=== PATIENT | male | born 1975 | race Hispanic/Latino ===

== ENCOUNTER 2020-02-01 11:05 | Emergency (ER) | payer SELFPAY ==
[~2020-02-01] VITALS: Ht 182.9 cm; Wt 99.8 kg
[2020-02-01] MEDS ORDERED: KETOROLAC TROMETHAMINE 30 MG/ML VIAL IV STA (11:26)
[2020-02-01] MEDS ORDERED: SODIUM CHLORIDE 0.9% 1000ML 1,000 ML IV STA (11:26)
[2020-02-01] MEDS ORDERED: ONDANSETRON HCL INJ 2MG/ML 2ML 2 MG/ML VIAL IV STA (11:26)
[2020-02-01] MEDS ORDERED: ASPIRIN 81 MG CHEW TAB PO ONE (11:30)
--- NOTE | 2020-02-01 11:33 | Emergency Department Note ---
History of Present Illnes History of Present Illness Chief Complaint: Chest Pain History of Present Illness This is a 45 year old male . presented to ed c/o r side lab pain radiating to back c/o nausea no diarrhea vomiting - c/o pain w/ movement Historian: Patient Arrival Mode: Car Onset (how long ago): day(s) (3) Radiation: Reports back Severity: moderate Onset quality: gradual Duration (how long): day(s) (3) Timing of current episode: constant Context: Denies recent illness, Denies recent surgery Relieving factors: none Exacerbating factors: none Associated symptoms: Reports denies other symptoms Treatments prior to arrival: none Past Medical/Family History Physician Review I have reviewed the patient's past medical and family history. Any updates have been documented here. Past Medical History Recent Fever: No Clinical Suspicion of Infectio: No New/Unexplained Change in Ment: No Past Medical History: None Past Surgical History: None Social History Smoking Cessation: Never Smoker Alcohol Use: None Any Illegal Drug Use: No TB Exposure/Symptoms: No Physically hurt or threatened: No Family History Family history of heart diseas: No Other Any Pre-Existing Lines (PICC,: No Review of Systems Review of Systems Constitutional: Reports no symptoms EENTM: Reports no symptoms Cardiovascular: Reports no symptoms Respiratory: Reports no symptoms Gastrointestinal: Reports as per HPI, Reports abdominal pain Genitourinary: Reports no symptoms Musculoskeletal: Reports no symptoms Integumentary: Reports no symptoms Neurological: Reports no symptoms Psychological: Reports no symptoms Endocrine: Reports no symptoms Hematological/Lymphatic: Reports no symptoms Physical Exam Related Data Allergies: Coded Allergies: No Known Allergies (Unverified , 02/01/20) Triage Vital Signs Vital Signs Date Time Temp Pulse Resp B/P (MAP) Pulse Ox O2 Delivery O2 Flow Rate FiO2 02/01/20 11:23 97.8 65 18 130/76 100 Room Air Vital signs reviewed: Yes Physical Exam CONSTITUTIONAL Constitutional: Present well-developed, Present well-nourished HENT HENT: Present normocephalic, Present atraumatic, Present oropharynx clear/moist, Present nose normal HENT L/R: Present left ext ear normal, Present right ext ear normal EYES Eyes: Reports PERRL, Reports conjunctivae normal NECK Neck: Present ROM normal PULMONARY Pulmonary: Present effort normal CARDIOVASCULAR Cardiovascular: Present regular rhythm GASTROINTESTINAL Abdominal: Present soft, Present bowel sounds normal; Absent nontender (ttp rlq ruq ) GENITOURINARY Genitourinary: Present other (denies testical pain ) SKIN Skin: Present warm MUSCULOSKELETAL Musculoskeletal: Present ROM normal NEUROLOGICAL Neurological: Present alert, Present oriented x 3 PSYCHOLOGICAL Psychological: Present mood/affect normal, Present judgement normal Results Laboratory Laboratory Laboratory Tests Test 02/01/20 12:00 02/01/20 11:40 Urine Color Yellow (YELLOW) Urine Clarity Clear (CLEAR) Urine pH 6 (5 - 7) Urine Specific [place] >=1.030 (1.010-1.025) Urine Protein Negative (NEGATIVE) Urine Glucose (UA) Negative (NEGATIVE) Urine Ketones Negative (NEGATIVE) Urine Blood Negative (NEGATIVE) Urine Nitrite Negative (NEGATIVE) Urine Bilirubin Negative (NEGATIVE) Urine Urobilinogen 0.2 mg/dL (0.2 - 1) Urine Leukocyte Esterase Negative (NEGATIVE) Urine RBC 0-5 /HPF (0-5) Urine WBC 0-5 /HPF (0-5) Urine Epithelial Cells None /LPF (NONE) Urine Bacteria Rare /HPF (NONE) White Blood Count 8.58 x10e3/uL (4.8-10.8) Red Blood Count 6.17 x10e6/uL (4.3-5.7) Hemoglobin 17.2 g/dL (14.0-18.0) Hematocrit 53.5 % (38.2-49.6) Mean Corpuscular Volume 86.7 fL (81-99) Mean Corpuscular Hemoglobin 27.9 pg (28-32) Mean Corpuscular Hemoglobin Concent 32.1 g/dL (31-35) Red Cell Distribution Width 14.6 % (11.7-14.4) Platelet Count 377 x10e3/uL (140-360) Neutrophils (%) (Auto) 62.4 % (38.7-80.0) Lymphocytes (%) (Auto) 25.4 % (18.0-39.1) Monocytes (%) (Auto) 9.6 % (4.4-11.3) Eosinophils (%) (Auto) 1.5 % (0.0-6.0) Basophils (%) (Auto) 0.6 % (0.0-1.0) Neutrophils # (Auto) 5.4 (2.1-6.9) Lymphocytes # (Auto) 2.2 (1.0-3.2) Monocytes # (Auto) 0.8 (0.2-0.8) Eosinophils # (Auto) 0.1 (0.0-0.4) Basophils # (Auto) 0.1 (0.0-0.1) Absolute Immature Granulocyte (auto 0.04 x10e3/uL (0-0.1) Sodium Level 141 mmol/L (136-145) Potassium Level 3.7 mmol/L (3.5-5.1) Chloride Level 98 mmol/L (98-107) Carbon Dioxide Level 32 mmol/L (22-29) Anion Gap 14.7 mmol/L (8-16) Blood Urea Nitrogen 14 mg/dL (7-26) Creatinine 1.66 mg/dL (0.72-1.25) Estimat Glomerular Filtration Rate 45 ML/MIN (60-) BUN/Creatinine Ratio 8 (6-25) Glucose Level 82 mg/dL (74-118) Calcium Level 9.6 mg/dL (8.4-10.2) Total Bilirubin 0.3 mg/dL (0.2-1.2) Aspartate Amino Transf (AST/SGOT) 16 IU/L (5-34) Alanine Aminotransferase (ALT/SGPT) 15 IU/L (0-55) Alkaline Phosphatase 87 IU/L (40-150) Creatine Kinase 224 IU/L (30-200) Creatine Kinase MB 1.10 ng/mL (0-5.0) Troponin I < 0.001 ng/mL (0-0.300) Total Protein 7.6 g/dL (6.5-8.1) Albumin 4.2 g/dL (3.5-5.0) Globulin 3.4 g/dL (2.3-3.5) Albumin/Globulin Ratio 1.2 (0.8-2.0) Amylase Level 68 U/L (25-125) Lipase 58 U/L (8-78) Lab results reviewed: Yes Imaging Imaging results reviewed: Yes Impressions Patient Name: RENETTA MATTSON III MR #: [id number] : 1975 Age/Sex: 45/M Req #: [id number] Adm Physician: Ordered by: TAWANDA ARECHIGA MD Report #: [id number] Location: ER Room/Bed: Procedure: [id number] US/US GALLBLADDER Exam Date: 02/01/20 Exam Time: 1317 REPORT STATUS: Signed HISTORY: ^ABD PAIN ^20200201 ^1317 ^Y COMPARISON: None. TECHNIQUE: Limited ultrasound examination of the abdomen was performed with attention to the right upper quadrant and with spectral and color Doppler. FINDINGS: Liver: The liver is normal in size with increased echogenicity. No focal lesions. Gallbladder: No stones. No sludge, pericholecystic fluid or wall thickening. Common bile duct: 0.2 cm in maximum diameter. Sonographic Grider's sign: Negative. Main portal vein: 0.9 cm. Pancreas: Obscured by bowel gas. Right kidney: The right kidney is normal in size. No hydronephrosis. No sonographically evident solid mass lesion. Anechoic 4.6 x 3.7 x 4.8 cm cyst. No ascites nor pleural effusion. IMPRESSION: 1. Echogenic liver, may be seen in steatosis/inflammation. Correlate with laboratory values. 2. Otherwise, unremarkable limited right upper quadrant abdominal exam. Signed by: Jhonatan Stokes MD on 02/01/2020 1:41 PM Dictated By: JHONATAN STOKES DO 1341 Transcribed By: KETAN on 02/01/20 [address] [place] [id number] Patient Name: RENETTA MATTSON III MR #: [id number] : 1975 Age/Sex: 45/M Req #: [id number] Adm Physician: Ordered by: TAWANDA ARECHIGA MD Report #: [id number] Location: ER Room/Bed: Procedure: [id number] CT/CT ABDOMEN/PELVIS W Exam Date: 02/01/20 Exam Time: 1310 REPORT STATUS: Signed EXAM: CT of the abdomen and pelvis with intravenous contrast HISTORY: ^r side abd pain ^20200201 ^1310 COMPARISON: None TECHNIQUE: Abdomen and pelvis were scanned utilizing a multidetector helical scanner. Coronal and sagittal reformations were obtained. Scan was performed during the portal venous phase. DOSE REDUCTION: The examination was performed according to the departmental dose-optimization program, which includes automated exposure control, adjustment of the mA and/or kV according to patient size and/or use of iterative reconstruction technique. FINDINGS: LINES and TUBES: None. LOWER THORAX: Lingular 0.4 cm groundglass nodule. HEPATOBILIARY: Low hepatic attenuation. Hepatic dome subcentimeter hypodensity is too small to characterize. No biliary ductal dilation. GALLBLADDER: No radio-opaque stones or sludge. No wall thickening. SPLEEN: No splenomegaly. PANCREAS: No focal masses or ductal dilatation. ADRENALS: No adrenal nodules. KIDNEYS/URETERS: Kidneys enhance symmetrically. No hydronephrosis. Right renal 4.7 cm simple cyst measures 7 Hounsfield units. No solid mass lesions. No stones. GI TRACT: Slightly thickened jejunal wall. No abnormal distention, or evidence of bowel obstruction. Appendix is normal. PELVIC ORGANS/BLADDER: Unremarkable. LYMPH NODES: No lymphadenopathy. VESSELS: Unremarkable. PERITONEUM / RETROPERITONEUM: No free air or fluid. BONES: Scattered degenerative changes. SOFT TISSUES: Unremarkable. IMPRESSION: 1. No findings to explain this patient's right-sided abdominal pain. 2. Findings suggestive of left-sided small bowel enteritis. 3. Low hepatic attenuation, may be seen in steatosis/inflammation. Correlate with laboratory values. Signed by: Jhonatan Stokes MD on 02/01/2020 1:56 PM Dictated By: JHONATAN STOKES DO 1356 Transcribed By: KETAN on 02/01/201355 COPY TO: TAWANDA ARECHIGA MD~ COPY TO: TAWANDA ARECHIGA MD~ Procedures 12 Lead ECG Interpretation ECG Interpretation : ECG: ECG 1 Date: Feb 01, 2020 Time: 11:28 Prior ECG tracings: reviewed Rhythm: sinus rhythm Rate: normal BPM: 61 QRS axis: normal ST segments normal: Yes Pacin% capture Clinical Impression: normal ECG Assessment & Plan Medical Decision Making MDM This is a 45 year old male . presented to ed c/o r side lab pain radiating to back c/o nausea no diarrhea vomiting - c/o pain w/ movement- denies dysuria - denies pain radiating to testicles - no cva tenderness note don exam - non impressive belly exam - plan lab us ct pain med r/o stone/tucker/divertic/ sbo Reassessment Reassessment discussed lab us ct results plan of care and f/u instructions appy speech given Assessment & Plan Final Impression: (1) Abdominal pain Last Vital Signs Date Time Temp Pulse Resp B/P (MAP) Pulse Ox O2 Delivery O2 Flow Rate FiO2 02/01/20 11:23 97.8 65 18 130/76 100 Room Air TAWANDA ARECHIGA MD Feb 01, 2020 11:33
[2020-02-01] MEDS ORDERED: CEFTRIAXONE SOD 1 GM/NS 50 ML 50 ML IV ONE (11:45)
[2020-02-01 12:17] LABS: BASOPHILS # (AUTO) 0.1 (0.0-0.1); BASOPHILS % 0.6 % (0.0-1.0); EOSINOPHILS # (AUTO) 0.1 (0.0-0.4); EOSINOPHILS % 1.5 % (0.0-6.0); HEMATOCRIT 53.5 % (38.2-49.6); HEMOGLOBIN 17.2 g/dL (14.0-18.0); LYMPHOCYTES # (AUTO) 2.2 (1.0-3.2); LYMPHOCYTES % 25.4 % (18.0-39.1); MEAN CORPUSCULAR HEMOGLOBIN 27.9 pg (28-32); MEAN CORPUSCULAR HGB CONC 32.1 g/dL (31-35); MEAN CORPUSCULAR VOLUME 86.7 fL (81-99); MONOCYTES # (AUTO) 0.8 (0.2-0.8); MONOCYTES % 9.6 % (4.4-11.3); NEUTROPHILS # (AUTO) 5.4 (2.1-6.9); NEUTROPHILS % 62.4 % (38.7-80.0); PLATELET COUNT 377 x10e3/uL (140-360); RED BLOOD COUNT 6.17 x10e6/uL (4.3-5.7); RED CELL DISTRIBUTION WIDTH 14.6 % (11.7-14.4)
[2020-02-01 12:30] LABS: BILIRUBIN,URINE NEGATIVE (NEGATIVE); CLARITY,URINE CLEAR (CLEAR); COLOR,URINE YELLOW (YELLOW); KETONES,URINE NEGATIVE (NEGATIVE); LEUKOCYTE ESTERASE ,URINE NEGATIVE (NEGATIVE); NITRITE,URINE NEGATIVE (NEGATIVE); PROTEIN,URINE DIPSTICK NEGATIVE (NEGATIVE); URINE UROBILINOGEN 0.2 mg/dL (0.2 - 1)
[2020-02-01 12:31] LABS: ALANINE AMINOTRANSFERASE 15 IU/L (0-55); ALBUMIN 4.2 g/dL (3.5-5.0); ALBUMIN/GLOBULIN RATIO 1.2 (0.8-2.0); ALKALINE PHOSPHATASE 87 IU/L (40-150); AMYLASE 68 U/L (25-125); ANION GAP 14.7 mmol/L (8-16); BLOOD UREA NITROGEN 14 mg/dL (7-26); BUN/CREATININE RATIO 8 (6-25); CALCIUM 9.6 mg/dL (8.4-10.2); CARBON DIOXIDE 32 mmol/L (22-29); CHLORIDE 98 mmol/L (98-107); CREATINE KINASE 224 IU/L (30-200); CREATININE, SERUM 1.66 mg/dL (0.72-1.25); EST GLOMERULAR FILTRATION RATE 45 ML/MIN (60-); GLUCOSE 82 mg/dL (74-118); LIPASE 58 U/L (8-78); POTASSIUM 3.7 mmol/L (3.5-5.1); SODIUM 141 mmol/L (136-145)
[2020-02-01 12:34] LABS: BACTERIA,URINE RARE /HPF; RBC,URINE 0-5 /HPF (0-5); WBC,URINE (MAN) 0-5 /HPF (0-5)
--- NOTE | 2020-02-01 13:44 | Diagnostic Imaging Report ---
HISTORY: ^ABD PAIN ^20200201 ^8 ^Y COMPARISON: None. TECHNIQUE: Limited ultrasound examination of the abdomen was performed with attention to the right upper quadrant and with spectral and color Doppler. FINDINGS: Liver: The liver is normal in size with increased echogenicity. No focal lesions. Gallbladder: No stones. No sludge, pericholecystic fluid or wall thickening. Common bile duct: 0.2 cm in maximum diameter. Sonographic Grider's sign: Negative. Main portal vein: 0.9 cm. Pancreas: Obscured by bowel gas. Right kidney: The right kidney is normal in size. No hydronephrosis. No sonographically evident solid mass lesion. Anechoic 4.6 x 3.7 x 4.8 cm cyst. No ascites nor pleural effusion. IMPRESSION: 1. Echogenic liver, may be seen in steatosis/inflammation. Correlate with laboratory values. 2. Otherwise, unremarkable limited right upper quadrant abdominal exam. Signed by: Jhonatan Stokes MD on 02/01/2020 1:41 PM
[2020-02-01] MEDS ORDERED: MORPHINE SULFATE INJ 4 MG/ML INJ 1ML IV STA (13:48)
--- NOTE | 2020-02-01 14:00 | Diagnostic Imaging Report ---
EXAM: CT of the abdomen and pelvis with intravenous contrast HISTORY: ^r side abd pain ^20200201 ^1310 COMPARISON: None TECHNIQUE: Abdomen and pelvis were scanned utilizing a multidetector helical scanner. Coronal and sagittal reformations were obtained. Scan was performed during the portal venous phase. DOSE REDUCTION: The examination was performed according to the departmental dose-optimization program, which includes automated exposure control, adjustment of the mA and/or kV according to patient size and/or use of iterative reconstruction technique. FINDINGS: LINES and TUBES: None. LOWER THORAX: Lingular 0.4 cm groundglass nodule. HEPATOBILIARY: Low hepatic attenuation. Hepatic dome subcentimeter hypodensity is too small to characterize. No biliary ductal dilation. GALLBLADDER: No radio-opaque stones or sludge. No wall thickening. SPLEEN: No splenomegaly. PANCREAS: No focal masses or ductal dilatation. ADRENALS: No adrenal nodules. KIDNEYS/URETERS: Kidneys enhance symmetrically. No hydronephrosis. Right renal 4.7 cm simple cyst measures 7 Hounsfield units. No solid mass lesions. No stones. GI TRACT: Slightly thickened jejunal wall. No abnormal distention, or evidence of bowel obstruction. Appendix is normal. PELVIC ORGANS/BLADDER: Unremarkable. LYMPH NODES: No lymphadenopathy. VESSELS: Unremarkable. PERITONEUM / RETROPERITONEUM: No free air or fluid. BONES: Scattered degenerative changes. SOFT TISSUES: Unremarkable. IMPRESSION: 1. No findings to explain this patient's right-sided abdominal pain. 2. Findings suggestive of left-sided small bowel enteritis. 3. Low hepatic attenuation, may be seen in steatosis/inflammation. Correlate with laboratory values. Signed by: Jhonatan Stokes MD on 02/01/2020 1:56 PM
== END 2020-02-01 14:54 | disposition home or self-care (01) ==
LOC: ER 12:42
DX: R10.11 Right upper quadrant pain (principal); K52.9 Noninfective gastroenteritis and colitis, unspecified
CPT/HCPCS: 36415; 74177; 76705; 80053; 81001; 82150; 82550; 82553; 83690; 84484; 85025; 93005; 99284; J0696; J1885; J2270; J2405; J7030